=== PATIENT | female | born 1960 | race Caucasian/White ===

== ENCOUNTER → 2017-02-14 | Outpatient (CLI) | payer OTHER ==
[~2017-02-14] VITALS: Ht 162.6 cm; Wt 130.5 kg
[~2017-02-14] MED LIST: ASPI81TA39 PO; ATOR40TA28 PO; CALC-1038 PO; CARV12 PO; FERR-89 PO; FURO40 PO; LEVO50 PO; LISI-662 PO; OMEG-135 PO; SPIR25 PO
[2017-02-14 14:50] VITALS: BP 117/71
== END | disposition home or self-care (01) ==
LOC: SRCNTR 14:29
PROVIDERS: ATTEND Internal Medicine Clinical Cardiac Electrophysiology
DX: Z45.018 Encounter for adjustment and management of other part of cardiac pacemaker (principal)
CPT/HCPCS: G0463